=== PATIENT | female | born 1950 | race Caucasian/White ===

== ENCOUNTER 2020-04-14 06:58 | Outpatient (NON) | payer MEDICARE, SELFPAY ==
[2020-04-14 19:04] LABS: SARS-CoV-2 RNA PCR Positive
== END 2020-04-14 06:59 ==
PROVIDERS: PCP Family Medicine; Visit Provider Family Medicine
DX: U07.1 COVID-19 (principal)
CPT/HCPCS: 87635; C9803; U0003